=== PATIENT | female | born 1990 | race Caucasian/White ===

== ENCOUNTER 2020-06-15 08:37 | Emergency (ER) | payer OTHER ==
[2020-06-15] MEDS ORDERED: BACTROBAN NASAL1 GM (09:20)
[2020-06-15] MEDS ORDERED: CEPHALEXIN500 MG PO (09:20)
== END 2020-06-15 09:31 | disposition home or self-care (01) ==
LOC: FER 08:37
DX: L60.0 Ingrowing nail (principal)
CPT/HCPCS: 99283